=== PATIENT | female | born 2000 | race African-American/Black ===

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

== ENCOUNTER 2019-04-19 18:29 | Emergency (ER) | payer OTHER, SELFPAY ==
[2019-04-19 19:05] LABS: #Basophils 0.1 thou/uL (0.0-0.2); #Eosinphils 0.4 thou/uL (0.0-0.7); #Lymphocytes 2.4 thou/uL (1.20-3.40); #Monocytes 0.6 thou/uL (0.11-0.59); #Neutrophils 4.5 thou/uL (1.40-6.50); %Basophils 0.8 % (0.0-1.0); %Eosinophils 5.3 % (0.0-10.0); %Monocytes 7.6 % (0.0-4.0); %Neutrophils 56.4 % (31.0-61.0); Hemoglobin 13.1 g/dL (12.0-16.0); Mean Corpuscular HGB CONC 33.3 g/dL (32.0-36.0); Mean Corpuscular Hemoglobin 27.5 pg (25.0-35.0); Mean Corpuscular Volume 82.5 fL (78.0-98.0); Mean Platelet Volume 7.2 fL (7.4-10.4); Platelet Count 336 thou/uL (130-400); RBC Distribution Width 10.6 % (11.5-14.5); Red Blood Cell (RBC) Count 4.77 mill/uL (4.00-5.20)
[2019-04-19 19:16] LABS: Bilirubin Negative (Negative); Blood, Urine Negative (Negative); Clarity Clear (Clear); Glucose, Urine (Dipstick) Normal (Negative); Leukocyte Negative Leu/uL (Negative); Nitrite Negative (Negative); Protein, Urine (Dipstick) Negative (Neg-Trace); Urobilinogen Normal mg/dL (Less than 2)
[2019-04-19 19:18] LABS: Pregnancy Test - Urine (BHCG) Negative (Negative); Pregu Control Background? CLEAR/WHITE (CLR/WHITE); Pregu Control Bar Appear? YES (CONTROL BAR); Specific Gravity 1.002 (1.002-1.036)
[2019-04-19 19:25] LABS: AST (SGOT) 16 U/L (5-34); Albumin 4.5 g/dL (3.5-5.0); Anion Gap 11 mmol/L (10-20); Bilirubin, Total 0.8 mg/dL (0.2-1.2); Calc. Creatinine Clearance 0 mL/min (70-130); Calcium 9.7 mg/dL (7.8-10.44); Carbon Dioxide 24 mmol/L (22-29); Chloride 105 mmol/L (98-107); Estimated GFR-MDRD Greater than 90; Globulin 3.1 g/dL (2.4-3.5); Glucose 106 mg/dL (70-105); Potassium 3.5 mmol/L (3.5-5.1); Protein, Total 7.6 g/dL (6.0-8.3); Sodium 136 mmol/L (136-145)
[2019-04-19 19:31] LABS: ALT (SGPT) 8 U/L (8-55); Alkaline Phosphatase 61 U/L (40-100); BUN (Urea Nitrogen) 11 mg/dL (7.0-18.7)
--- NOTE | 2019-04-19 20:16 | RAD ---
EXAM: Chest Two Views 04/19/2019 8:13 PM HISTORY: Dyspnea and anxiety COMPARISON: Chest radiograph dated April 07, 2015 FINDINGS: Heart: Normal in size and contour. Pulmonary vessels: Normal. Costophrenic angles: Clear. Lungs: No acute airspace consolidation. Pneumothorax: None. Osseous structures:Stable mild scoliotic curvature of the midthoracic spine. No acute fracture or sub luxation demonstrated. Additional findings: None. IMPRESSION: No significant acute intrathoracic disease.
== END 2019-04-19 21:09 | disposition home or self-care (01) ==
LOC: ERS 18:29
DX: F41.9 Anxiety disorder, unspecified (principal); F43.0 Acute stress reaction
CPT/HCPCS: 36415; 71046; 80053; 81003; 81025; 84443; 85025; 85379; 93005; 96360